=== PATIENT | female | born 1975 | race Caucasian/White ===

== ENCOUNTER 2016-12-31 08:15 | Day surgery (SDC) | payer MEDICAID ==
[~2016-12-31 08:15] MED LIST: Lactated Ringers 1,000 ML IV SCH
[2016-12-31] MEDS ORDERED: fentaNYL 100 MCG/2 ML SDV ONE (09:33)
[2016-12-31] MEDS ORDERED: Propofol 200 MG/20 ML SDV ONE (09:33)
[2016-12-31] MEDS ORDERED: Citric Acid/Sodium Citrate Solution 30 ML Cup PO ONE (09:35)
[2016-12-31 10:24] VITALS: BP 124/91
--- NOTE | 2017-01-01 07:44 | OR ---
PREOPERATIVE DIAGNOSIS: Upper abdominal pain. POSTOPERATIVE DIAGNOSIS: Upper abdominal pain. PROCEDURE PERFORMED: Esophagogastroduodenoscopy with antral biopsy. INDICATION: The patient is a 41-year-old female with history of abdominal pain. She also has had about 30 pounds weight loss, presents for EGD for further evaluation. PROCEDURE IN DETAIL: This was done in the endoscopy suite, sedation was given per Anesthesia. Endoscope was inserted across the pharynx and esophagus, through the esophagus down into the stomach. Stomach was insufflated, while across the pylorus into the first and second portion of duodenum. First and second portion of duodenum were normal. Scope was slowly withdrawn. I then did 2 random antral biopsies for H. pylori. The scope was retroflexed. She did have a [id number] hiatal hernia present with evidence of esophagitis. The scope was withdrawn. The remaining of the esophagus was normal. FINAL DIAGNOSES: 1. Hiatal hernia. 2. Esophagitis. BKD: 12/31/2016 10:00:29 MODL: 12/31/2016 13:40:47 /[id number]
== END 2016-12-31 11:05 | disposition home or self-care (01) ==
LOC: VM.SDS 08:15
PROVIDERS: ATTEND Surgery
DX: K20.9 Esophagitis, unspecified (principal); K44.9 Diaphragmatic hernia without obstruction or gangrene; F41.9 Anxiety disorder, unspecified; F32.9 Major depressive disorder, single episode, unspecified; Z91.09 Other allergy status, other than to drugs and biological substances; Z79.899 Other long term (current) drug therapy; F17.210 Nicotine dependence, cigarettes, uncomplicated; Z98.890 Other specified postprocedural states
CPT/HCPCS: 43239; 81025; A9270; J2704; J3010; J7120

== ENCOUNTER 2017-02-01 19:33 | Emergency (ER) | payer MEDICAID ==
--- NOTE | 2017-02-01 19:59 | EDM.PDOC ---
ED HPI GENERAL MEDICAL PROBLEM - General Chief Complaint: Neuro Symptoms/Deficits Stated Complaint: unable to speech Time Seen by Provider: 02/01/17 19:45 Source of Information: Reports: Patient, EMS History Limitations: Reports: No Limitations - History of Present Illness INITIAL COMMENTS - FREE TEXT/NARRATIVE: Patient's mother contacted EMS this evening after patient was sitting on the couch and sustained a fall from a sitting position onto the floor did not strike her head. Patient states that she was in the middle time in her mom and remembers that she could not speak or words any longer and ended up on the floor her mom. She could hear she was talking to her but she could not get the words that were necessary she also felt foggy for a few minutes after the experience this loss of control. The mother is at the bedside and states that when she is also culture her eyes did roll back and that she was incoherent in discussing any sort of activity with her. Patient has been working with neurology along with her primary care doctor over the last 3 weeks for unknown facial numbness bilateral. MRI was done on Saturday and patient states that it has been shown to be negative. Patient also states that she saw a neurologist at sometime most recently. But she has not had a CT worked up and has not had any further workup regarding a possible seizure activity. When EMS arrived on scene the patient was able to communicate verbally and nonverbally. She was also able to move all extremities without any sort of issues. [facility]. Patient states that she has fully recovered and she does not have any residual issues she denies having any sort headache currently. Patient's long-standing history of chronic pain medication she is on morphine ER 60 mg along with oxycodone 10 mg every 8 hours. Patient states that she is taking her medications as prescribed and does not use them as abuse does not take anymore than she is currently recommended or prescribed by provider. Onset: Today, Sudden - Related Data Allergies Allergy/AdvReac Type Severity Reaction Status Date / Time No Known Allergies Allergy Verified 12/31/16 09:06 Home Meds: Home Meds Furosemide [Lasix] 1 tab PO DAILY 12/21/14 [History] Morphine [MS Contin] 60 mg PO BID 12/21/14 [History] Sertraline [Zoloft] 100 mg PO DAILY 12/21/14 [History] buPROPion [Wellbutrin XL] 1 tab PO DAILY 12/21/14 [History] oxyCODONE 10 mg PO DAILY PRN 12/21/14 [History] DULoxetine [Cymbalta] 30 mg PO DAILY 12/27/16 [History] Past Medical History HEENT History: Reports: Other (See Below) Other HEENT History: States lump in throat Respiratory History: Reports: Pneumonia, Recurrent Gastrointestinal History: Reports: Other (See Below) Other Gastrointestinal History: vomitting. wieght loss Genitourinary History: Reports: None Musculoskeletal History: Reports: Back Pain, Chronic Neurological History: Reports: None Psychiatric History: Reports: Anxiety, Depression Hematologic History: Reports: None Immunologic History: Reports: None Oncologic (Cancer) History: Reports: None - Past Surgical History HEENT Surgical History: Reports: Other (See Below) Other HEENT Surgeries/Procedures: Lower chest discomfort Cardiovascular Surgical History: Reports: None Respiratory Surgical History: Reports: None GI Surgical History: Reports: None Female Surgical History: Reports: None Musculoskeletal Surgical History: Reports: None Social & Family History - Tobacco Use Smoking Status *Q: Current Some Day Smoker Packs/Tins Daily: 11 Second Hand Smoke Exposure: No - Alcohol Use Days Per Week of Alcohol Use: 3 - Recreational Drug Use Recreational Drug Use: No Drug Use in Last 12 Months: No ED ROS GENERAL - Review of Systems Review Of Systems: See Below Constitutional: Reports: No Symptoms, Weakness HEENT: Reports: No Symptoms Respiratory: Reports: No Symptoms Cardiovascular: Reports: No Symptoms Endocrine: Reports: No Symptoms GI/Abdominal: Reports: No Symptoms : Reports: No Symptoms Musculoskeletal: Reports: No Symptoms Skin: Reports: No Symptoms Neurological: Reports: Headache, Weakness, Change in Speech, Gait Disturbance. Denies: Numbness Psychiatric: Reports: No Symptoms Hematologic/Lymphatic: Reports: No Symptoms ED EXAM, GENERAL - Physical Exam Exam: See Below Exam Limited By: No Limitations General Appearance: Alert, WD/WN, No Apparent Distress Respiratory/Chest: No Respiratory Distress, Lungs Clear, Normal Breath Sounds, No Accessory Muscle Use, Chest Non-Tender Cardiovascular: Normal Peripheral Pulses, Regular Rate, Rhythm, No Edema, No Gallop GI/Abdominal: Normal Bowel Sounds, Soft, Non-Tender, No Organomegaly, No Distention, No Abnormal Bruit Back Exam: Normal Inspection, Full Range of Motion Extremities: Normal Inspection, Normal Range of Motion, Normal Capillary Refill Neurological: Alert, Oriented, CN II-XII Intact, Normal Cognition, Normal Gait, Normal Reflexes, No Motor/Sensory Deficits. No: Inattentive, Confused, Disoriented, Slow to Respond, Unresponsive, Memory Loss Remote Events, Memory Loss Recent Events, Abnormal Reflexes, Sensory/Motor Deficit Psychiatric: Normal Affect, Normal Mood Skin Exam: Warm, Dry, Intact, Normal Color EKG INTERPRETATION Rhythm: NSR Course - Orders/Labs/Meds Orders: Active Orders 24 hr Category Date Time Status Head wo Cont [CT] Stat Exams 02/01/17 19:52 Taken PROLACTIN [REF] Stat Lab 02/01/17 20:14 Received Labs: Laboratory Tests 02/01/17 02/01/17 Range/Units 20:14 20:14 WBC 6.8 (4.0-10.0) x10^3/uL RBC 4.33 (4.00-5.50) x10^6/uL Hgb 16.0 (12.0-16.0) g/dL Hct 45.8 (33.0-47.0) % MCV 105.8 H (78.0-93.0) fL MCH 37.0 H (26.0-32.0) pg MCHC 34.9 (32.0-36.0) g/dL RDW Coeff of Priya 12.9 (10.0-15.0) % Plt Count 137 (130-400) x10^3/uL Neut % (Auto) 65.1 (50.0-80.0) % Lymph % (Auto) 24.9 L (25.0-50.0) % [place] % (Auto) 7.8 (2.0-11.0) % Eos % (Auto) 1.9 (0.0-4.0) % Baso % (Auto) 0.3 (0.2-1.2) % Sodium 139 (136-145) mmol/L Potassium 4.2 (3.5-5.1) mmol/L Chloride 101 (98-107) mmol/L Carbon Dioxide 31 (21-32) mmol/L BUN 6 L (7-18) mg/dL Creatinine 0.6 (0.55-1.02) mg/dL Est Cr Clr Drug Dosing TNP Estimated GFR (MDRD) > 60 Glucose 108 H (74-106) mg/dL Calcium 9.9 (8.5-10.1) mg/dL Corrected Calcium 10.06 (8.5-10.1) mg/dL Total Bilirubin 0.9 (0.2-1.0) mg/dL AST 56 H (15-37) U/L ALT 41 (14-59) U/L Alkaline Phosphatase 129 H (46-116) U/L Creatine Kinase 13 L (26-192) U/L Total Protein 7.6 (6.4-8.2) g/dL Albumin 3.8 (3.4-5.0) g/dL Globulin 3.8 Albumin/Globulin Ratio 1.00 Ethyl Alcohol < 3 (0-3) mg/dL - Re-Assessments/Exams Free Text/Narrative Re-Assessment/Exam: 02/01/17 20:30 Pt has no residual symptoms. At the bedside talking with family carrying on conversation without difficulty. Would like to go home. However did discuss with the pt that we are waiting on CT results. Departure - Departure Time of Disposition: 21:00 Disposition: Home, Self-Care 01 Condition: Good Clinical Impression: Seizure - Discharge Information Referrals: Sera Esteban DO [Primary Care Provider] - Forms: ED Department Discharge Additional Instructions: Pt is to follow up with PCP on Saturday for referral to Neurology and EEG to further investigate seizure activity today. - My Orders Last 24 Hours: My Active Orders 02/01/17 19:52 Head wo Cont [CT] Stat 02/01/17 20:14 PROLACTIN [REF] Stat - Assessment/Plan Last 24 Hours: My Active Orders 02/01/17 19:52 Head wo Cont [CT] Stat 02/01/17 20:14 PROLACTIN [REF] Stat
[2017-02-01 20:41] LABS: CHLORIDE,CL 101 mmol/L (98-107); SODIUM,NA 139 mmol/L (136-145)
[2017-02-02 02:03] VITALS: BP 128/78
== END 2017-02-01 21:15 | disposition home or self-care (01) ==
LOC: SUPCPDRO 19:33 → VM.ED 19:33
DX: R56.9 Unspecified convulsions (principal); F17.210 Nicotine dependence, cigarettes, uncomplicated; Z79.899 Other long term (current) drug therapy; W19.XXXA Unspecified fall, initial encounter
CPT/HCPCS: 70450; 80053; 82550; 84146; 85025; 99285; G0480; 36415; 93005

== ENCOUNTER 2018-09-01 10:18 | Day surgery (SDC) | payer MEDICAID ==
[2018-09-01] MEDS ORDERED: fentaNYL 100 MCG/2 ML SDV ONE (11:34)
[2018-09-01] MEDS ORDERED: Propofol 200 MG/20 ML SDV ONE (11:34)
[2018-09-01 13:23] VITALS: BP 118/84
--- NOTE | 2018-09-01 15:50 | OR ---
PREOPERATIVE DIAGNOSES: 1. Gastroesophageal reflux disease. 2. Portal vein thrombosis. POSTOPERATIVE DIAGNOSES: 1. Gastroesophageal reflux disease. 2. Portal vein thrombosis. PROCEDURE PERFORMED: Esophagogastroduodenoscopy. INDICATION: The patient is a 43-year-old female with history of thrombosed portal vein, is going to undergo coumadinization here in the near future, presents for EGD and followup prior to that. PROCEDURE IN DETAIL: This was done in the endoscopy suite. Sedation was given per anesthesia. The scope was inserted into the mouth, across the pharynx, into the esophagus, across the esophagus, into the stomach, across the pylorus. The first and second portion of the duodenum versus second portion of the duodenum were normal. Scope was slowly withdrawn and retroflexed. The body of the stomach and antrum were normal. The hiatus of the diaphragm was reasonably normal. Prep is a very small hiatal hernia. The scope was withdrawn. The remainder of the way in the esophagus itself was normal. FINAL DIAGNOSIS: Normal esophagogastroduodenoscopy. BKD: 09/01/2018 12:34:34 MODL: 09/01/2018 15:42:17 /[id number]
== END 2018-09-01 13:40 | disposition home or self-care (01) ==
LOC: VM.SDS 10:18
PROVIDERS: ATTEND Surgery
DX: Z01.818 Encounter for other preprocedural examination (principal); K21.9 Gastro-esophageal reflux disease without esophagitis; I81 Portal vein thrombosis; K44.9 Diaphragmatic hernia without obstruction or gangrene; K74.60 Unspecified cirrhosis of liver; M47.892 Other spondylosis, cervical region; G62.9 Polyneuropathy, unspecified; Z79.01 Long term (current) use of anticoagulants; Z79.899 Other long term (current) drug therapy
CPT/HCPCS: 81025; J2704; J3010; J7120

== ENCOUNTER 2021-09-01 08:55 | Emergency (ER) | payer MEDICAID ==
[2021-09-01] MEDS ORDERED: Succinylcholine 200 MG/10 ML MDV ONE (09:30)
[2021-09-01] MEDS ORDERED: Flumazenil 0.1 MG/ML 5 ML MDV ONE (09:38)
[2021-09-01] MEDS ORDERED: Rocuronium 50 MG/5 ML Vial ONE (09:47)
[2021-09-01] MEDS ORDERED: Piperacillin/Tazobactam 4.5 GM Vial ONE (09:53)
[2021-09-01] MEDS ORDERED: Sodium Chloride 0.9% 100 ML ONE (09:53)
[2021-09-01] MEDS ORDERED: Piperacillin/Tazobactam 4.5 GM in Sodium Chloride 0.9% 100 ML IV ONE (09:53)
[2021-09-01 10:03] LABS: BARBITURATE SCREEN,URINE NEGATIVE (NEGATIVE); BENZODIAZEPINES SCREEN,URINE POSITIVE (NEGATIVE); BUPRENORPHINE SCREEN,URINE NEGATIVE (NEGATIVE); METHAMPHETAMINE SCREEN, URINE NEGATIVE (NEGATIVE)
[2021-09-01 10:04] LABS: CHLORIDE,CL 103 mmol/L (98-107); SODIUM,NA 144 mmol/L (136-145)
[2021-09-01 10:04] LABS: THC SCREEN,URINE 50 NG/ML NEGATIVE (NEGATIVE)
[2021-09-01 10:10] LABS: ANION GAP 18.7 mmol/L (5-15)
[2021-09-01] MEDS ORDERED: propofoL 50 ML ONE (10:30)
[2021-09-01 10:38] LABS: PCO2 ARTERIAL,POC 90 mmHg (35-48)
[2021-09-01] MEDS ORDERED: Midazolam 1 MG/ML 2 ML SDV ONE (10:51)
[2021-09-01] MEDS ORDERED: Etomidate 2 MG/ML 10 ML SDV ONE (10:52)
[2021-09-01] MEDS ORDERED: Naloxone 0.4 MG/ML SDV ONE (11:37)
[2021-09-01] MEDS ORDERED: Atropine 0.1 MG/ML 10 ML Syringe ONE (11:37)
[2021-09-01 12:40] VITALS: BP 105/75; PULSE 106
== END 2021-09-01 10:55 | disposition short-term general hospital (02) ==
LOC: VM.ED 09:17
DX: T50.7X1A Poisoning by analeptics and opioid receptor antagonists, accidental (unintentional), initial encounter (principal); R40.4 Transient alteration of awareness; Z79.899 Other long term (current) drug therapy; Z79.01 Long term (current) use of anticoagulants
CPT/HCPCS: 31500; 36600; 51702; 70450; 71045; 80053; 80305-QW; 80307; 81001; 82803; 84484; 85025; 93010; 96361; 96365; 96375; 99284; 99285-25; J0330

== ENCOUNTER 2022-08-30 10:19 | Emergency (ER) | payer MEDICAID ==
[2022-08-30] MEDS ORDERED: Naloxone 0.4 MG/ML SDV IVPUSH ONE (10:31)
[2022-08-30] MEDS ORDERED: Flumazenil 0.1 MG/ML 5 ML MDV IVPUSH ONE (10:39)
[2022-08-30] MEDS: Flumazenil 0.1 MG/ML 5 ML MDV ONE ×2 (10:39→13:12)
[2022-08-30] MEDS ORDERED: Sodium Chloride 0.9% 10 ML Syringe FLUSH PRN (10:40)
[2022-08-30] MEDS ORDERED: methylPREDNISolone Sodium Succinate 125 MG/2 ML SDV ONE (10:44)
[2022-08-30] MEDS: Albuterol/Ipratropium 3.0-0.5 MG/3 ML Neb Soln ONE ×2 (10:45→14:20)
[2022-08-30] MEDS ORDERED: methylPREDNISolone Sodium Succinate 125 MG/2 ML SDV IVPUSH ONE (10:45)
[2022-08-30] MEDS ORDERED: Albuterol/Ipratropium 3.0-0.5 MG/3 ML Neb Soln NEB ONE (10:45)
[2022-08-30 10:46] LABS: BASOPHILS PERCENT AUTO 0.4 % (0.2-1.2); EOSINOPHILS ABSOLUTE AUTO 0.1 x10^3/uL (0.0-0.5); EOSINOPHILS PERCENT AUTO 1.6 % (0.0-4.0); HEMATOCRIT 41.7 % (33.0-47.0); HEMOGLOBIN 14.7 g/dL (12.0-16.0); IMMATURE GRAN ABSOLUTE AUTO 0.06 x10^3/uL (0.00-0.07); LYMPHOCYTES ABSOLUTE AUTO 1.9 x10^3/uL (1.0-4.8); LYMPHOCYTES PERCENT AUTO 37.6 % (25.0-50.0); MEAN CORPUSCULAR HEMOGLOBIN 39.5 pg (26.0-32.0); MEAN CORPUSCULAR HGB CONC 35.3 g/dL (32.0-36.0); MEAN CORPUSCULAR VOLUME 112.1 fL (78.0-93.0); MONOCYTES ABSOLUTE AUTO 0.6 x10^3/uL (0.0-0.8); NEUTROPHILS ABSOLUTE AUTO 2.5 x10^3/uL (1.8-7.7); NEUTROPHILS PERCENT AUTO 48.2 % (50.0-80.0); PLATELET COUNT,PLT 123 x10^3/uL (130-400); RED BLOOD CELL COUNT 3.72 x10^6/uL (4.00-5.50); WHITE BLOOD CELL COUNT,WBC 5.2 x10^3/uL (4.0-10.0)
[2022-08-30] MEDS ORDERED: cefTRIAXone 1 GM Vial IVPUSH ONE ×2 (10:54→11:56)
[2022-08-30] MEDS ORDERED: Sodium Chloride 0.9% 1,000 ML IV SCH (11:20)
[2022-08-30 11:24] LABS: INR 0.9 (2.0-3.5); PROTHROMBIN TIME 9.8 SEC (9.5-12.2)
[2022-08-30 11:30] LABS: LACTIC ACID 0.8 mmol/L (0.4-2.0)
[2022-08-30 11:38] LABS: A/G RATIO 1.15; ALANINE AMINOTRANSFERASE,ALT 44 U/L (14-59); ALBUMIN 3.9 g/dL (3.4-5.0); ALKALINE PHOSPHATASE 143 U/L (46-116); ASPARTATE AMNIOTRANSFERASE,AST 72 U/L (15-37); BILIRUBIN TOTAL 0.3 mg/dL (0.2-1.0); BLOOD UREA NITROGEN,BUN 12 mg/dL (7-18); CARBON DIOXIDE,CO2 29 mmol/L (21-32); CHLORIDE,CL 100 mmol/L (98-107); CREATININE 0.9 mg/dL (0.55-1.02); GLUCOSE RANDOM 129 mg/dL (70-99); POTASSIUM,K 3.6 mmol/L (3.5-5.1); PRO B-TYPE NATRIUR PEPT,BNPPRO 79 pg/mL (<=125); PROTEIN TOTAL,TP 7.3 g/dL (6.4-8.2); SODIUM,NA 140 mmol/L (136-145)
[2022-08-30 11:41] LABS: ANION GAP 14.6 mmol/L (5-15); ESTIMATED GFR 80 mL/min (>=60)
[2022-08-30 12:00] LABS: BASE EXCESS ARTERIAL,POC 3 mmol/L ((-2)-3); HCO3 ARTERIAL,POC 28.8 mmol/L (21-28); O2 SATURATION ARTERIAL,POC 99.5 % (94-98); PCO2 ARTERIAL,POC 54 mmHg (35-48); PH ARTERIAL,POC 7.33 pH (7.35-7.45); PO2 ARTERIAL,POC 188 mmHg (83-108); TCO2 ARTERIAL,POC 28.2 mmol/L (22-29)
[2022-08-30 14:14] VITALS: BP 162/98; PULSE 97
== END 2022-08-30 12:20 | disposition short-term general hospital (02) ==
LOC: VM.ED 10:19
DX: T50.901A Poisoning by unspecified drugs, medicaments and biological substances, accidental (unintentional), initial encounter (principal); J69.0 Pneumonitis due to inhalation of food and vomit; R09.02 Hypoxemia; R06.03 Acute respiratory distress; I45.10 Unspecified right bundle-branch block; Z79.899 Other long term (current) drug therapy
CPT/HCPCS: 36415; 36600; 70450; 71045; 80053; 82803; 83605; 83880; 84484; 85025; 85610; 87040; 93005; 93010; 94640; 94660; 94760; 96361; 96374; 96375; 96376; 99284; 99285-25; J0696; J2310; J2930; J3490; J7030; J7620-GY

== ENCOUNTER 2023-01-10 10:16 | Emergency (ER) | payer MEDICAID ==
[~2023-01-10 10:16] MED LIST changes: -Lactated Ringers 1,000 ML IV SCH; +Sodium Chloride 0.9% 1,000 ML IV ONE
[2023-01-10] MEDS ORDERED: Flumazenil 0.1 MG/ML 5 ML MDV ONE ×2 (10:20→10:30)
[2023-01-10] MEDS ORDERED: Propofol 200 MG/20 ML SDV ONE ×2 (10:20→11:06)
[2023-01-10] MEDS ORDERED: Naloxone 0.4 MG/ML SDV ONE ×2 (10:20→10:30)
[2023-01-10] MEDS ORDERED: Ondansetron 4 MG/2 ML SDV ONE ×2 (10:20→10:23)
[2023-01-10] MEDS ORDERED: Rocuronium 50 MG/5 ML Vial ONE ×2 (10:20→10:21)
[2023-01-10] MEDS ORDERED: cefTRIAXone 1 GM Vial ONE (10:20)
[2023-01-10] MEDS ORDERED: Succinylcholine 200 MG/10 ML MDV ONE (10:21)
[2023-01-10] MEDS ORDERED: Ondansetron 4 MG/2 ML SDV IVPUSH ONE (10:28)
[2023-01-10] MEDS ORDERED: Propofol 200 MG/20 ML SDV IVPUSH ONE (10:30)
[2023-01-10] MEDS ORDERED: Succinylcholine 200 MG/10 ML MDV IVPUSH ONE (10:31)
[2023-01-10] MEDS ORDERED: Naloxone 0.4 MG/ML SDV IVPUSH ONE (10:32)
[2023-01-10] MEDS ORDERED: Flumazenil 0.1 MG/ML 5 ML MDV IVPUSH ONE (10:32)
[2023-01-10] MEDS ORDERED: Norepinephrine Bit/D5W Premix 250 ML ONE (10:36)
[2023-01-10] MEDS ORDERED: cefTRIAXone 1 GM Vial IVPUSH ONE (10:36)
[2023-01-10] MEDS ORDERED: Rocuronium 50 MG/5 ML Vial IVPUSH ONE (10:40)
[2023-01-10 10:41] LABS: BASOPHILS PERCENT AUTO 0.2 % (0.2-1.2); HEMATOCRIT 46.7 % (33.0-47.0); IMMATURE GRAN ABSOLUTE AUTO 0.19 x10^3/uL (0.00-0.07); LYMPHOCYTES ABSOLUTE AUTO 1.3 x10^3/uL (1.0-4.8); LYMPHOCYTES PERCENT AUTO 10.7 % (25.0-50.0); MEAN CORPUSCULAR HEMOGLOBIN 36.9 pg (26.0-32.0); MEAN CORPUSCULAR HGB CONC 32.1 g/dL (32.0-36.0); MEAN CORPUSCULAR VOLUME 114.7 fL (78.0-93.0); MONOCYTES ABSOLUTE AUTO 1.4 x10^3/uL (0.0-0.8); MONOCYTES PERCENT AUTO 10.9 % (2.0-11.0); NEUTROPHILS ABSOLUTE AUTO 9.6 x10^3/uL (1.8-7.7); NEUTROPHILS PERCENT AUTO 76.7 % (50.0-80.0); PLATELET COUNT,PLT 139 x10^3/uL (130-400); RED BLOOD CELL COUNT 4.07 x10^6/uL (4.00-5.50); WHITE BLOOD CELL COUNT,WBC 12.5 x10^3/uL (4.0-10.0)
[2023-01-10] MEDS ORDERED: Sodium Chloride 0.9% 1,000 ML IV ONE ×3 (10:41→12:01)
[2023-01-10] MEDS ORDERED: Norepinephrine Bit/D5W Premix 250 ML IV SCH (10:42)
[2023-01-10 11:00] LABS: BASE EXCESS ARTERIAL,POC -8 mmol/L ((-2)-3); HCO3 ARTERIAL,POC 20.8 mmol/L (21-28); O2 SATURATION ARTERIAL,POC 88.3 % (94-98); PCO2 ARTERIAL,POC 60 mmHg (35-48); PH ARTERIAL,POC 7.15 pH (7.35-7.45); PO2 ARTERIAL,POC 72 mmHg (83-108); TCO2 ARTERIAL,POC 21.5 mmol/L (22-29)
[2023-01-10 11:20] LABS: A/G RATIO 0.78; ALBUMIN 3.1 g/dL (3.4-5.0); ALKALINE PHOSPHATASE 175 U/L (46-116); ASPARTATE AMNIOTRANSFERASE,AST 170 U/L (15-37); BILIRUBIN TOTAL 1.1 mg/dL (0.2-1.0); BLOOD UREA NITROGEN,BUN 44 mg/dL (7-18); CALCIUM 9.3 mg/dL (8.5-10.1); CARBON DIOXIDE,CO2 22 mmol/L (21-32); CHLORIDE,CL 100 mmol/L (98-107); CREATININE 2.2 mg/dL (0.55-1.02); GLUCOSE RANDOM 53 mg/dL (70-99); POTASSIUM,K 4.6 mmol/L (3.5-5.1); PROTEIN TOTAL,TP 7.1 g/dL (6.4-8.2); SODIUM,NA 140 mmol/L (136-145)
[2023-01-10 11:32] LABS: ANION GAP 22.6 mmol/L (5-15); ESTIMATED GFR 27 mL/min (>=60); ETHANOL BLOOD MEDICAL < 3 mg/dL (0-3)
[2023-01-10 11:41] LABS: APPEARANCE,URINE CLEAR (CLEAR); BILIRUBIN,URINE SMALL (NEGATIVE); COLOR,URINE YELLOW (YELLOW); GLUCOSE,URINE NEGATIVE (NEGATIVE); KETONES,URINE NEGATIVE (NEGATIVE); LEUKOCYTE ESTERASE,URINE NEGATIVE (NEGATIVE); NITRITE,URINE NEGATIVE (NEGATIVE); OCCULT BLOOD,URINE TRACE-LYSED (NEGATIVE); PH,URINE 5.5 (5.0-8.0); PROTEIN,URINE 30 mg/dL (NEGATIVE)
[2023-01-10 11:45] LABS: AMPHETAMINES SCREEN, URINE NEGATIVE (NEGATIVE); BARBITURATE SCREEN,URINE NEGATIVE (NEGATIVE); BENZODIAZEPINES SCREEN,URINE POSITIVE (NEGATIVE); BUPRENORPHINE SCREEN,URINE NEGATIVE (NEGATIVE); COCAINE METABOLITES,URINE NEGATIVE (NEGATIVE); METHADONE SCREEN, URINE NEGATIVE (NEGATIVE); METHAMPHETAMINE SCREEN, URINE NEGATIVE (NEGATIVE); OXYCODONE SCREEN,URINE NEGATIVE (NEGATIVE); PCP SCREEN,URINE NEGATIVE (NEGATIVE); THC SCREEN,URINE 50 NG/ML NEGATIVE (NEGATIVE)
[2023-01-10 11:51] LABS: BACTERIA,URINE NOT SEEN /HPF (NOT SEEN); MUCUS,URINE NOT SEEN /LPF (NOT SEEN); RBC,URINE NOT SEEN /HPF (NOT SEEN); SQUAMOUS EPITHELIAL CELLS,UR NOT SEEN /HPF (NOT SEEN); WBC,URINE 0-5 /HPF (NOT SEEN)
[2023-01-10] MEDS ORDERED: Sodium Chloride 0.9% 10 ML Syringe FLUSH PRN ×2 (12:00→12:01)
== END 2023-01-10 11:20 | disposition short-term general hospital (02) ==
LOC: VM.ED 10:16
DX: T50.912A Poisoning by multiple unspecified drugs, medicaments and biological substances, intentional self-harm, initial encounter (principal); A41.9 Sepsis, unspecified organism; R65.21 Severe sepsis with septic shock; J96.91 Respiratory failure, unspecified with hypoxia; J69.0 Pneumonitis due to inhalation of food and vomit; I95.2 Hypotension due to drugs; I10 Essential (primary) hypertension; Z79.899 Other long term (current) drug therapy; Z79.01 Long term (current) use of anticoagulants
CPT/HCPCS: 00790; 31500; 36415; 36600; 43752; 51702; 70450; 71045; 80053; 80305; 80307; 81001; 82803; 85025; 94002; 96365; 96375; 99284; 99285; J0330; J0696; J2310; J2405; J2704; J3490; J7030